=== PATIENT | female | born 1955 | race Caucasian/White ===

== ENCOUNTER 2023-04-23 19:08 | Emergency (ER) | payer OTHER, MEDICAID ==
[~2023-04-23] VITALS: Ht 162.6 cm; Wt 54.4 kg
[2023-04-23 19:13] VITALS: BP 133/77; PULSE 78; RESP 16; TEMP 97.8; O2SAT 98
--- NOTE | 2023-04-23 19:13 | NUR ---
PT PLACED IN BED 08 BY [facility]
[2023-04-23] MEDS ORDERED: DICYCLOMINE HCL LIQUID 20 MG, ALUMINUM HYD/MAG/SIMETHICONE 30 ML, LIDOCAINE VISCOUS 2% ... PO ONE ×3 (19:25)
[2023-04-23] MEDS ORDERED: FAMOTIDINE 20 MG/2 ML VIAL IVP ONE (19:25)
[2023-04-23] MEDS ORDERED: NACL 0.9% 1,000 ML IV ONE (19:25)
--- NOTE | 2023-04-23 19:31 | NUR ---
Note guadalupe in EDM - 04/23/23 at 1955 by [facility] 67 yo f leslee from home with c/c of 03/28 burn-like epigastric pain x over 1 month. denies n/v/d. reports being seen at [facility] had mri and ct done, states she does not know what is wrong with her. hx:hyperlidemia allergy:pcn
--- NOTE | 2023-04-23 19:31 | NUR ---
67 yo f leslee from home with c/c of 6/10 burn-like epigastric pain x over 1 month. denies n/v/d. reports being seen at [facility] had mri and ct done, states she does not know what is wrong with her. call light within reach, pt instructed on how to use call light, pt returned demonstration. all needs met at this time. bed locked in lowest position , side rails x2 for saftey. hx:hyperlidemia allergy:pcn
[2023-04-23] MEDS ORDERED: ALUMINUM HYD/MAG/SIMETHICONE 30 ML UDC ONE ×2 (19:38→19:41)
[2023-04-23] MEDS ORDERED: DICYCLOMINE HCL LIQUID 10 MG/5 ML UDC ONE (19:39)
--- NOTE | 2023-04-23 19:49 | NUR ---
rad at bedside
[2023-04-23 20:00] LABS: BASOPHILS % (AUTO) 0.6 % (0.0-2.0); EOSINOPHILS % (AUTO) 0.4 % (0.0-4.0); HEMATOCRIT 36.6 % (36-48); HEMOGLOBIN 12.4 g/dL (12.0-16.0); LYMPHOCYTES # (AUTO) 1.2 K/uL (2.5-16.5); LYMPHOCYTES % (AUTO) 22.1 % (20.5-51.1); MEAN CORPUSCULAR HEMOGLOBIN 32 pg (27-31); MEAN CORPUSCULAR HGB CONC 34 g/dL (33-37); MEAN CORPUSCULAR VOLUME 95.2 fL (80-94); MONOCYTES # (AUTO) 0.4 K/uL (0.8-1.0); MONOCYTES % (AUTO) 7.8 % (1.7-9.3); NEUTROPHILS # (AUTO) 3.9 K/uL (1.8-7.7); NEUTROPHILS % (AUTO) 69.1 % (42.2-75.2); PLATELET COUNT (AUTO) 118 K/uL (140-450); RED BLOOD CELL COUNT(AUTO) 3.84 MIL/uL (4.20-5.40); WHITE BLOOD COUNT (AUTO) 5.6 K/uL (4.8-10.8)
[2023-04-23 20:18] LABS: ALBUMIN 3.6 g/dL (3.4-5.0); ANION GAP 12.4 (8-16); ASPARTATE AMINOTRANSFERASE 22 U/L (15-37); CARBON DIOXIDE 26.6 mmol/L (21-32); CHLORIDE 103 mmol/L (98-107); CREATININE 0.8 mg/dL (0.6-1.3); GFR ARICAN-AMERICAN 93 mL/min (>90); GLUCOSE 94 mg/dL (74-106); LIPASE 139 U/L (73-393); SODIUM SERUM 138 mmol/L (136-145); TOTAL BILIRUBIN 0.5 mg/dL (0.0-1.0); UREA NITROGEN, BLOOD 11 mg/dL (7-18)
--- NOTE | 2023-04-23 20:19 | NUR ---
radiology at bedside
--- NOTE | 2023-04-23 20:30 | NUR ---
pt stated that she ws relieved from pain
--- NOTE | 2023-04-23 21:00 | NUR ---
lauar moore [phone] Addendum: 04/23/23 at 2104 by [email or web address] [id number]
--- NOTE | 2023-04-23 21:17 | NUR ---
pt to ct
--- NOTE | 2023-04-23 21:17 | NUR ---
pt brought to radiology by radiator core tester
[2023-04-24] MEDS ORDERED: OMEP40EC23 PO (00:03)
[2023-04-24] MEDS ORDERED: SUCR1TAB35 PO (00:03)
--- NOTE | 2023-04-24 00:40 | NUR ---
Patient discharged with v/s stable. Written and verbal after care instructions given and explained. Patient alert, oriented and verbalized understanding of instructions. Ambulatory with steady gait. All questions addressed prior to discharge. ID band removed. Patient advised to follow up with PMD. Rx given to pt. Patient educated on indication of medication including possible reaction and side effects. Opportunity to ask questions provided and answered.
[2023-04-24 00:52] VITALS: BP 124/80; PULSE 84; RESP 16; TEMP 98.5; O2SAT 99
== END 2023-04-24 00:40 | disposition home or self-care (01) ==
LOC: MED 19:08
DX: R10.13 Epigastric pain (principal); Z79.899 Other long term (current) drug therapy; Z88.0 Allergy status to penicillin
CPT/HCPCS: 36415; 71045; 74177; 80053; 83690; 84484; 85025; 93005; 96361; 96374; 99285; J3490; J7030; Q9967

== ENCOUNTER 2023-05-23 16:27 | Emergency (ER) | payer OTHER, MEDICAID ==
[~2023-05-23] VITALS: Ht 157.5 cm; Wt 53.5 kg
[~2023-05-23 16:27] MED LIST: OMEP40EC23 PO; SUCR1TAB35 PO
[2023-05-23 16:45] VITALS: BP 139/56; PULSE 87; RESP 18; TEMP 97.4; O2SAT 94
[2023-05-23 17:43] LABS: BASOPHILS % (AUTO) 0.6 % (0.0-2.0); EOSINOPHILS % (AUTO) 0.3 % (0.0-4.0); HEMATOCRIT 38.1 % (36-48); HEMOGLOBIN 12.9 g/dL (12.0-16.0); LYMPHOCYTES % (AUTO) 19.1 % (20.5-51.1); MEAN CORPUSCULAR HEMOGLOBIN 32 pg (27-31); MEAN CORPUSCULAR HGB CONC 34 g/dL (33-37); MEAN CORPUSCULAR VOLUME 95.3 fL (80-94); MONOCYTES # (AUTO) 0.3 K/uL (0.8-1.0); MONOCYTES % (AUTO) 5.9 % (1.7-9.3); NEUTROPHILS % (AUTO) 74.1 % (42.2-75.2); PLATELET COUNT (AUTO) 115 K/uL (140-450); RED BLOOD CELL COUNT(AUTO) 3.99 MIL/uL (4.20-5.40); RED CELL DISTRIBUTION WIDTH 13.2 % (11.6-13.7); WHITE BLOOD COUNT (AUTO) 5.4 K/uL (4.8-10.8)
[2023-05-23 18:09] LABS: ALBUMIN 3.4 g/dL (3.4-5.0); ANION GAP 11.2 (8-16); CARBON DIOXIDE 28.6 mmol/L (21-32); CREATININE 0.8 mg/dL (0.6-1.3); POTASSIUM 3.8 mmol/L (3.5-5.1); TOTAL BILIRUBIN 0.6 mg/dL (0.0-1.0)
[2023-05-23] MEDS ORDERED: FAMOTIDINE 20 MG/2 ML VIAL IVP ONE (19:15)
[2023-05-23] MEDS ORDERED: DICYCLOMINE HCL LIQUID 20 MG, ALUMINUM HYD/MAG/SIMETHICONE 30 ML, LIDOCAINE VISCOUS 2% ... PO ONE ×3 (19:15)
--- NOTE | 2023-05-23 19:26 | NUR ---
PT TAKEN TO BED 9
[2023-05-23 20:00] VITALS: TEMP 97.4
--- NOTE | 2023-05-23 20:00 | NUR ---
PATIENT IS A 67/F WHO CAME IN DUE TO 1 DAY HISTORY OF BURNIGN EPIGASTRIC PAIN, 5/10, LOCALIZED ASSOCIATED WITH DECREASED APPETITE. NO FEVER/CHILLS, NAUSEA/VOMITING/DIARRHEA NOTED. PMHX: GERD ALLERGIES: PENICILLINS
[2023-05-23] MEDS ORDERED: DICYCLOMINE HCL LIQUID 10 MG/5 ML UDC ONE (20:05)
--- NOTE | 2023-05-23 20:15 | NUR ---
X-RAY AT BEDSIDE.
--- NOTE | 2023-05-23 20:44 | NUR ---
PATIENT TAKEN TO CT.
[2023-05-23 21:44] LABS: APPEARANCE,URINE CLEAR (CLEAR); BILIRUBIN,URINE NEGATIVE (NEGATIVE); BLOOD, URINE NEGATIVE (NEGATIVE); COLOR,URINE YELLOW (YELLOW); LEUKOCYTE ESTERASE ,URINE NEGATIVE (NEGATIVE); NITRITE, URINE NEGATIVE (NEGATIVE); PH,URINE 6.5 (5.0-9.0); UGLUCOSE NEGATIVE (NEGATIVE)
--- NOTE | 2023-05-23 22:23 | NUR ---
PATIENT AWAKE AND COMFORTABLE IN BED. NO COMPLAINTS OF PAIN OR SIGNS OF ACUTE DISTRESS AT THIS TIME. SIDE RAILS UP AND CALL LIGHT WITHIN REACH.
--- NOTE | 2023-05-23 23:35 | NUR ---
Dr. Rollins examining patient.
[2023-05-23] MEDS ORDERED: FAMO-90 PO (23:37)
[2023-05-23] MEDS ORDERED: MAG355OR2 PO (23:38)
[2023-05-24 00:05] VITALS: BP 115/71; PULSE 63; RESP 16; O2SAT 99
--- NOTE | 2023-05-24 00:23 | NUR ---
Patient discharged with v/s stable. Written and verbal after care instructions given and explained. Patient alert, oriented and verbalized understanding of instructions. Ambulatory with steady gait. All questions addressed prior to discharge. ID band removed. Patient advised to follow up with PMD. Rx of Maalox given. Patient educated on indication of medication including possible reaction and side effects. Opportunity to ask questions provided and answered.
== END 2023-05-24 00:23 | disposition home or self-care (01) ==
LOC: MED 16:27
DX: R10.13 Epigastric pain (principal); Z79.899 Other long term (current) drug therapy
CPT/HCPCS: 36415; 71045; 74177; 80053; 81003; 83690; 84484; 85025; 93005; 96374; 99285; J3490; Q9967

== ENCOUNTER 2023-06-11 12:19 | Emergency (ER) | payer OTHER, MEDICAID ==
[~2023-06-11] VITALS: Ht 162.6 cm; Wt 51.3 kg
[~2023-06-11 12:19] MED LIST changes: +FAMO-90 PO; +MAG355OR2 PO
[2023-06-11 12:29] VITALS: BP 120/64; PULSE 74; RESP 16; TEMP 97.1; O2SAT 97
[2023-06-11 12:40] VITALS: BP 120/64; PULSE 74; RESP 16; TEMP 97.1; O2SAT 97
[2023-06-11 13:01] LABS: BASOPHILS % (AUTO) 0.6 % (0.0-2.0); EOSINOPHILS % (AUTO) 0.1 % (0.0-4.0); HEMATOCRIT 39.2 % (36-48); HEMOGLOBIN 13.6 g/dL (12.0-16.0); LYMPHOCYTES # (AUTO) 0.6 K/uL (2.5-16.5); LYMPHOCYTES % (AUTO) 14.4 % (20.5-51.1); MEAN CORPUSCULAR HEMOGLOBIN 33 pg (27-31); MEAN CORPUSCULAR HGB CONC 35 g/dL (33-37); MEAN CORPUSCULAR VOLUME 94.6 fL (80-94); MONOCYTES # (AUTO) 0.3 K/uL (0.8-1.0); MONOCYTES % (AUTO) 5.8 % (1.7-9.3); NEUTROPHILS # (AUTO) 3.5 K/uL (1.8-7.7); NEUTROPHILS % (AUTO) 79.1 % (42.2-75.2); PLATELET COUNT (AUTO) 117 K/uL (140-450); RED BLOOD CELL COUNT(AUTO) 4.15 MIL/uL (4.20-5.40); WHITE BLOOD COUNT (AUTO) 4.4 K/uL (4.8-10.8)
[2023-06-11 13:30] LABS: ALBUMIN 3.7 g/dL (3.4-5.0); ANION GAP 13.4 (8-16); CALCIUM 8.9 mg/dL (8.5-10.1); CARBON DIOXIDE 26.9 mmol/L (21-32); CREATININE 0.9 mg/dL (0.6-1.3); POTASSIUM 4.3 mmol/L (3.5-5.1); TOTAL BILIRUBIN 0.9 mg/dL (0.0-1.0); TOTAL PROTEIN, SERUM 6.7 g/dL (6.4-8.2)
[2023-06-11 13:46] LABS: APPEARANCE,URINE CLEAR (CLEAR); BILIRUBIN,URINE NEGATIVE (NEGATIVE); BLOOD, URINE NEGATIVE (NEGATIVE); COLOR,URINE YELLOW (YELLOW); LEUKOCYTE ESTERASE ,URINE 1+ (NEGATIVE); NITRITE, URINE NEGATIVE (NEGATIVE); PROTEIN,URINE NEGATIVE (NEGATIVE); UGLUCOSE NEGATIVE (NEGATIVE); UROBILINOGEN,URINE 0.2 EU/dL (0.2 - 1)
[2023-06-11 14:10] LABS: BACTERIA,URINE 0-2 /HPF (None Seen); RBC,URINE 0-5 /HPF (0-5); WBC,URINE 0-5 /HPF (0-5)
== END 2023-06-11 15:40 | disposition home or self-care (01) ==
LOC: MED 12:19
DX: K29.70 Gastritis, unspecified, without bleeding (principal); D72.819 Decreased white blood cell count, unspecified; D69.6 Thrombocytopenia, unspecified; K21.9 Gastro-esophageal reflux disease without esophagitis; Z88.0 Allergy status to penicillin; Z79.899 Other long term (current) drug therapy
CPT/HCPCS: 36415; 80053; 81001; 83690; 85025; 87086; 99283

== ENCOUNTER 2023-06-16 08:03 | Emergency (ER) | payer OTHER, MEDICAID ==
[~2023-06-16] VITALS: Ht 162.6 cm; Wt 74.8 kg
[2023-06-16 08:06] VITALS: BP 102/61; PULSE 75; RESP 17; TEMP 98.5; O2SAT 97
[2023-06-16 08:25] VITALS: O2SAT 98
[2023-06-16 08:29] VITALS: BP 102/61; PULSE 75; RESP 17; TEMP 98.5
[2023-06-16] MEDS ORDERED: ONDANSETRON 4 MG ODT PO ONE (08:40)
[2023-06-16] MEDS ORDERED: ALUMINUM HYD/MAG/SIMETHICONE 30 ML UDC PO ONE (08:40)
[2023-06-16] MEDS ORDERED: FAMOTIDINE 20 MG TAB PO ONE (08:40)
[2023-06-16] MEDS ORDERED: MAG-27 PO (09:48)
[2023-06-16] MEDS ORDERED: FAMO-92 PO (09:48)
[2023-06-16] MEDS ORDERED: ONDA-188 PO (09:48)
[2023-06-16 10:13] VITALS: O2SAT 97
== END 2023-06-16 10:13 | disposition home or self-care (01) ==
LOC: MED 08:03
DX: K29.70 Gastritis, unspecified, without bleeding (principal); K21.9 Gastro-esophageal reflux disease without esophagitis; Z79.899 Other long term (current) drug therapy
CPT/HCPCS: 99284; Q0162

== ENCOUNTER 2023-06-18 09:46 | Emergency (ER) | payer OTHER, MEDICAID ==
[~2023-06-18] VITALS: Ht 162.6 cm; Wt 74.8 kg
[~2023-06-18 09:46] MED LIST changes: +FAMO-92 PO; +MAG-27 PO; +ONDA-188 PO
[2023-06-18 09:52] VITALS: BP 104/61; PULSE 82; RESP 18; TEMP 97.7; O2SAT 98
[2023-06-18] MEDS ORDERED: ALUMINUM HYD/MAG/SIMETHICONE 30 ML UDC PO ONE (10:00)
[2023-06-18 10:17] LABS: BASOPHILS % (AUTO) 0.6 % (0.0-2.0); EOSINOPHILS % (AUTO) 0.3 % (0.0-4.0); HEMATOCRIT 36.7 % (36-48); HEMOGLOBIN 12.6 g/dL (12.0-16.0); LYMPHOCYTES # (AUTO) 0.8 K/uL (2.5-16.5); LYMPHOCYTES % (AUTO) 17.8 % (20.5-51.1); MEAN CORPUSCULAR HEMOGLOBIN 33 pg (27-31); MEAN CORPUSCULAR HGB CONC 35 g/dL (33-37); MEAN CORPUSCULAR VOLUME 94.8 fL (80-94); MONOCYTES # (AUTO) 0.2 K/uL (0.8-1.0); MONOCYTES % (AUTO) 5.5 % (1.7-9.3); NEUTROPHILS # (AUTO) 3.2 K/uL (1.8-7.7); NEUTROPHILS % (AUTO) 75.8 % (42.2-75.2); PLATELET COUNT (AUTO) 118 K/uL (140-450); RED BLOOD CELL COUNT(AUTO) 3.87 MIL/uL (4.20-5.40); RED CELL DISTRIBUTION WIDTH 13.2 % (11.6-13.7); WHITE BLOOD COUNT (AUTO) 4.2 K/uL (4.8-10.8)
[2023-06-18] MEDS ORDERED: ONDANSETRON 4 MG ODT PO ONE (10:25)
[2023-06-18] MEDS ORDERED: ACETAMINOPHEN 325 MG TAB PO ONE (10:25)
[2023-06-18 10:51] LABS: ALANINE AMINOTRANSFERASE 29 U/L (12-78); ALBUMIN 3.3 g/dL (3.4-5.0); ALKALINE PHOSPHATASE 28 U/L (50-136); ANION GAP 9.1 (8-16); ASPARTATE AMINOTRANSFERASE 21 U/L (15-37); CALCIUM 8.3 mg/dL (8.5-10.1); CARBON DIOXIDE 26.9 mmol/L (21-32); CHLORIDE 105 mmol/L (98-107); CREATININE 0.7 mg/dL (0.6-1.3); GFR ARICAN-AMERICAN 108 mL/min (>90); GFR NON ARICAN-AMERICAN 89 mL/min (>90); GLUCOSE 102 mg/dL (74-106); LIPASE 162 U/L (73-393); SODIUM SERUM 137 mmol/L (136-145); TOTAL BILIRUBIN 0.6 mg/dL (0.0-1.0); UREA NITROGEN, BLOOD 14 mg/dL (7-18)
[2023-06-18] MEDS ORDERED: SUCR1TAB35 PO (11:32)
[2023-06-18 11:44] VITALS: BP 104/61; PULSE 82; RESP 18; TEMP 97.7; O2SAT 98
== END 2023-06-18 11:45 | disposition home or self-care (01) ==
LOC: MED 09:46
DX: R10.13 Epigastric pain (principal); R51.9 Headache, unspecified; K21.9 Gastro-esophageal reflux disease without esophagitis; Z88.0 Allergy status to penicillin; Z79.899 Other long term (current) drug therapy
CPT/HCPCS: 36415; 71045; 80053; 83690; 84484; 85025; 93005; 99285; Q0162

== ENCOUNTER 2023-06-20 12:49 | Emergency (ER) | payer OTHER, MEDICAID ==
[~2023-06-20] VITALS: Ht 165.1 cm; Wt 72.6 kg
[2023-06-20 12:54] VITALS: BP 117/74; PULSE 80; RESP 16; TEMP 98.4; O2SAT 97
[2023-06-20] MEDS ORDERED: ALUMINUM HYD/MAG/SIMETHICONE 30 ML UDC PO ONE (13:05)
[2023-06-20] MEDS ORDERED: KETOROLAC 30 MG/ML VIAL IM ONE (13:05)
[2023-06-20] MEDS ORDERED: ONDANSETRON 4 MG ODT PO ONE (13:05)
[2023-06-20 13:34] LABS: BASOPHILS % (AUTO) 0.4 % (0.0-2.0); EOSINOPHILS % (AUTO) 0.4 % (0.0-4.0); HEMATOCRIT 36.2 % (36-48); HEMOGLOBIN 12.4 g/dL (12.0-16.0); LYMPHOCYTES # (AUTO) 0.8 K/uL (2.5-16.5); LYMPHOCYTES % (AUTO) 14.8 % (20.5-51.1); MEAN CORPUSCULAR HEMOGLOBIN 33 pg (27-31); MEAN CORPUSCULAR HGB CONC 34 g/dL (33-37); MEAN CORPUSCULAR VOLUME 95.6 fL (80-94); MONOCYTES # (AUTO) 0.3 K/uL (0.8-1.0); MONOCYTES % (AUTO) 6.3 % (1.7-9.3); NEUTROPHILS % (AUTO) 78.1 % (42.2-75.2); PLATELET COUNT (AUTO) 123 K/uL (140-450); RED BLOOD CELL COUNT(AUTO) 3.79 MIL/uL (4.20-5.40); RED CELL DISTRIBUTION WIDTH 13.1 % (11.6-13.7); WHITE BLOOD COUNT (AUTO) 5.1 K/uL (4.8-10.8)
[2023-06-20 13:58] LABS: ALBUMIN 3.4 g/dL (3.4-5.0); ANION GAP 7.6 (8-16); CALCIUM 8.6 mg/dL (8.5-10.1); CARBON DIOXIDE 31.5 mmol/L (21-32); CREATININE 0.8 mg/dL (0.6-1.3); POTASSIUM 4.1 mmol/L (3.5-5.1); TOTAL BILIRUBIN 0.6 mg/dL (0.0-1.0); TOTAL PROTEIN, SERUM 6.1 g/dL (6.4-8.2)
[2023-06-20] MEDS ORDERED: OMEP40EC23 PO (15:12)
[2023-06-20] MEDS ORDERED: ONDA-188 PO (15:12)
[2023-06-20] MEDS ORDERED: MAG-27 PO (15:12)
[2023-06-20] MEDS ORDERED: FAMO-90 PO (15:12)
[2023-06-20 15:43] VITALS: BP 118/76; PULSE 78; RESP 18; TEMP 98.4; O2SAT 98
== END 2023-06-20 15:44 | disposition home or self-care (01) ==
LOC: MED 12:49
DX: K29.70 Gastritis, unspecified, without bleeding (principal); Z88.0 Allergy status to penicillin; Z79.899 Other long term (current) drug therapy
CPT/HCPCS: 36415; 80053; 83690; 84484; 85025; 93005; 96372; 99284; J1885; Q0162

== ENCOUNTER 2023-06-26 08:53 | Inpatient (IN) | payer OTHER, MEDICAID ==
[~2023-06-26] VITALS: Ht 162.6 cm; Wt 54.4 kg
[2023-06-26 09:05] VITALS: BP 119/65; PULSE 75; RESP 18; O2SAT 95
[2023-06-26 09:43] LABS: BASOPHILS % (AUTO) 0.7 % (0.0-2.0); EOSINOPHILS % (AUTO) 0.6 % (0.0-4.0); HEMATOCRIT 37.2 % (36-48); HEMOGLOBIN 12.8 g/dL (12.0-16.0); LYMPHOCYTES # (AUTO) 0.5 K/uL (2.5-16.5); LYMPHOCYTES % (AUTO) 12.6 % (20.5-51.1); MEAN CORPUSCULAR HEMOGLOBIN 33 pg (27-31); MEAN CORPUSCULAR HGB CONC 34 g/dL (33-37); MEAN CORPUSCULAR VOLUME 95.5 fL (80-94); MONOCYTES # (AUTO) 0.2 K/uL (0.8-1.0); MONOCYTES % (AUTO) 5.4 % (1.7-9.3); NEUTROPHILS # (AUTO) 3.5 K/uL (1.8-7.7); NEUTROPHILS % (AUTO) 80.7 % (42.2-75.2); PLATELET COUNT (AUTO) 121 K/uL (140-450); RED CELL DISTRIBUTION WIDTH 13.1 % (11.6-13.7); WHITE BLOOD COUNT (AUTO) 4.3 K/uL (4.8-10.8)
[2023-06-26] MEDS ORDERED: MORPHINE SULFATE 4 MG/ML SYR IVP ONE (10:00)
[2023-06-26] MEDS ORDERED: NACL 0.9% 1,000 ML IV ONE (10:00)
[2023-06-26] MEDS ORDERED: PANTOPRAZOLE 40 MG INJ VIAL IVP ONE (10:00)
[2023-06-26] MEDS ORDERED: ONDANSETRON 4 MG/2 ML VIAL IVP ONE (10:00)
[2023-06-26 10:03] LABS: ALANINE AMINOTRANSFERASE 20 U/L (12-78); ALBUMIN 3.2 g/dL (3.4-5.0); ALKALINE PHOSPHATASE 31 U/L (50-136); ANION GAP 9.3 (8-16); ASPARTATE AMINOTRANSFERASE 16 U/L (15-37); CALCIUM 8.4 mg/dL (8.5-10.1); CARBON DIOXIDE 28.6 mmol/L (21-32); CHLORIDE 105 mmol/L (98-107); CREATININE 0.8 mg/dL (0.6-1.3); GFR ARICAN-AMERICAN 93 mL/min (>90); GFR NON ARICAN-AMERICAN 77 mL/min (>90); GLUCOSE 86 mg/dL (74-106); LIPASE 116 U/L (73-393); POTASSIUM 3.9 mmol/L (3.5-5.1); SODIUM SERUM 139 mmol/L (136-145); TOTAL BILIRUBIN 0.7 mg/dL (0.0-1.0); UREA NITROGEN, BLOOD 18 mg/dL (7-18)
[2023-06-26 10:36] LABS: APPEARANCE,URINE CLEAR (CLEAR); BILIRUBIN,URINE NEGATIVE (NEGATIVE); BLOOD, URINE NEGATIVE (NEGATIVE); COLOR,URINE YELLOW (YELLOW); LEUKOCYTE ESTERASE ,URINE NEGATIVE (NEGATIVE); NITRITE, URINE NEGATIVE (NEGATIVE); PH,URINE 6.5 (5.0-9.0); PROTEIN,URINE NEGATIVE (NEGATIVE); UGLUCOSE NEGATIVE (NEGATIVE); UROBILINOGEN,URINE 0.2 EU/dL (0.2 - 1)
[2023-06-26] MEDS ORDERED: SODIUM PHOSPHATE 118 ML ENEM RC ONE (11:15)
[2023-06-26] MEDS ORDERED: LORazepam 2 MG/ML VIAL IVP PRN (12:50)
[2023-06-26] MEDS ORDERED: POTASSIUM CHLORIDE 10 MEQ TABER PO PRN (12:50)
[2023-06-26] MEDS ORDERED: ONDANSETRON 4 MG/2 ML VIAL IVP PRN (12:50)
[2023-06-26] MEDS ORDERED: ACETAMINOPHEN 325 MG TAB PO PRN (12:50)
[2023-06-26] MEDS ORDERED: bisacodyL 10 MG SUPP RC PRN ×2 (12:50→14:50)
[2023-06-26] MEDS ORDERED: DOCUSATE SODIUM 100 MG GELCAP PO PRN (12:50)
[2023-06-26] MEDS: NACL 0.9% 1,000 ML IV SCH ×2 (14:13→22:01)
[2023-06-26] MEDS: metroNIDAZOLE 500 MG/NS PREMIX 100 ML IV SCH ×2 (14:14→21:41)
[2023-06-26] MEDS: LEVOFLOXACIN 500 MG/D5W PREMIX 100 ML IV SCH (15:53)
[2023-06-26] MEDS: DOCUSATE SODIUM 250 MG GELCAP PO SCH (21:40)
[2023-06-26] MEDS: ZOLPIDEM 10 MG TAB PO PRN (21:51)
[2023-06-26 23:22] VITALS: O2SAT 95
[2023-06-27] VITALS: BP 128/76; PULSE 85; RESP 18; TEMP 97.6; O2SAT 97
[2023-06-27 04:00] VITALS: BP 124/72; PULSE 78; RESP 18; TEMP 97.5; O2SAT 97
[2023-06-27] MEDS: metroNIDAZOLE 500 MG/NS PREMIX 100 ML IV SCH ×3 (05:27→21:47)
[2023-06-27 06:36] LABS: BASOPHILS % (AUTO) 0.5 % (0.0-2.0); EOSINOPHILS # (AUTO) 0.1 K/uL (0-0.4); EOSINOPHILS % (AUTO) 1.5 % (0.0-4.0); HEMATOCRIT 36.3 % (36-48); HEMOGLOBIN 12.6 g/dL (12.0-16.0); LYMPHOCYTES # (AUTO) 0.9 K/uL (2.5-16.5); LYMPHOCYTES % (AUTO) 14.3 % (20.5-51.1); MEAN CORPUSCULAR HEMOGLOBIN 33 pg (27-31); MEAN CORPUSCULAR HGB CONC 35 g/dL (33-37); MEAN CORPUSCULAR VOLUME 94.8 fL (80-94); MONOCYTES # (AUTO) 0.4 K/uL (0.8-1.0); MONOCYTES % (AUTO) 6.8 % (1.7-9.3); NEUTROPHILS # (AUTO) 4.9 K/uL (1.8-7.7); NEUTROPHILS % (AUTO) 76.9 % (42.2-75.2); PLATELET COUNT (AUTO) 118 K/uL (140-450); RED BLOOD CELL COUNT(AUTO) 3.83 MIL/uL (4.20-5.40); WHITE BLOOD COUNT (AUTO) 6.3 K/uL (4.8-10.8)
[2023-06-27 06:52] LABS: ANION GAP 11.9 (8-16); CALCIUM 8.4 mg/dL (8.5-10.1); CARBON DIOXIDE 25.7 mmol/L (21-32); CREATININE 0.7 mg/dL (0.6-1.3); POTASSIUM 3.6 mmol/L (3.5-5.1)
[2023-06-27] MEDS: NACL 0.9% 1,000 ML IV SCH ×2 (08:19→16:26)
[2023-06-27] MEDS: DOCUSATE SODIUM 250 MG GELCAP PO SCH ×2 (08:19→21:47)
[2023-06-27 08:54] VITALS: BP 126/80; PULSE 87; RESP 18; TEMP 98; O2SAT 99
[2023-06-27 09:19] VITALS: PULSE 87; RESP 18; O2SAT 99
[2023-06-27] MEDS: LEVOFLOXACIN 500 MG/D5W PREMIX 100 ML IV SCH (15:15)
[2023-06-27] MEDS: MORPHINE SULFATE 2 MG/ML SYR IVP PRN (15:21)
[2023-06-27 15:46] VITALS: BP 113/79; PULSE 78; RESP 18; TEMP 97.8; O2SAT 98
[2023-06-27 20:00] VITALS: BP 104/66; PULSE 76; RESP 18; TEMP 98.6; O2SAT 97
[2023-06-27] MEDS: ZOLPIDEM 10 MG TAB PO PRN (21:49)
[2023-06-28 04:00] VITALS: BP 115/70; PULSE 78; RESP 18; TEMP 97.8; O2SAT 99
[2023-06-28] MEDS: NACL 0.9% 1,000 ML IV SCH ×2 (04:50→12:06)
[2023-06-28] MEDS: metroNIDAZOLE 500 MG/NS PREMIX 100 ML IV SCH ×2 (05:40→12:06)
[2023-06-28 07:16] LABS: BASOPHILS % (AUTO) 0.8 % (0.0-2.0); EOSINOPHILS % (AUTO) 0.9 % (0.0-4.0); HEMOGLOBIN 12.6 g/dL (12.0-16.0); LYMPHOCYTES # (AUTO) 0.6 K/uL (2.5-16.5); LYMPHOCYTES % (AUTO) 15.3 % (20.5-51.1); MEAN CORPUSCULAR HEMOGLOBIN 33 pg (27-31); MEAN CORPUSCULAR HGB CONC 35 g/dL (33-37); MONOCYTES # (AUTO) 0.3 K/uL (0.8-1.0); MONOCYTES % (AUTO) 7.1 % (1.7-9.3); NEUTROPHILS % (AUTO) 75.9 % (42.2-75.2); PLATELET COUNT (AUTO) 117 K/uL (140-450); RED BLOOD CELL COUNT(AUTO) 3.83 MIL/uL (4.20-5.40); RED CELL DISTRIBUTION WIDTH 13.3 % (11.6-13.7)
[2023-06-28 07:24] LABS: CALCIUM 8.5 mg/dL (8.5-10.1); CARBON DIOXIDE 28.6 mmol/L (21-32); CREATININE 0.8 mg/dL (0.6-1.3); POTASSIUM 3.6 mmol/L (3.5-5.1)
[2023-06-28] MEDS ORDERED: MAG SULF 2000 MG/WATER PREMIX 50 ML IV PRN (08:00)
[2023-06-28] MEDS: DOCUSATE SODIUM 250 MG GELCAP PO SCH ×2 (08:15→20:55)
[2023-06-28 08:51] VITALS: PULSE 82; RESP 18; O2SAT 100
[2023-06-28 09:05] VITALS: BP 119/75; PULSE 82; RESP 18; TEMP 98.2; O2SAT 100
[2023-06-28] MEDS: LEVOFLOXACIN 500 MG/D5W PREMIX 100 ML IV SCH (14:36)
[2023-06-28] MEDS: MORPHINE SULFATE 2 MG/ML SYR IVP PRN (15:33)
[2023-06-28 16:13] VITALS: BP 119/79; PULSE 85; RESP 18; TEMP 98.5; O2SAT 97
[2023-06-28] MEDS ORDERED: POTASSIUM CHLORIDE 10 MEQ TABER PO PRN (18:30)
[2023-06-28] MEDS ORDERED: ACETAMINOPHEN 325 MG TAB PO PRN (18:30)
[2023-06-28 20:00] VITALS: PULSE 75; RESP 17; O2SAT 98
[2023-06-28] MEDS: MAG SULF 2000 MG/WATER PREMIX 50 ML IV PRN ×2 (21:17→21:27)
[2023-06-29] VITALS: BP 107/69; PULSE 75; RESP 18; TEMP 97.4; O2SAT 97
[2023-06-29] MEDS: NACL 0.9% 1,000 ML IV SCH ×3 (01:27→20:50)
[2023-06-29 06:46] LABS: BASOPHILS % (AUTO) 0.9 % (0.0-2.0); EOSINOPHILS % (AUTO) 1.1 % (0.0-4.0); HEMATOCRIT 35.3 % (36-48); HEMOGLOBIN 12.2 g/dL (12.0-16.0); LYMPHOCYTES # (AUTO) 0.6 K/uL (2.5-16.5); LYMPHOCYTES % (AUTO) 14.7 % (20.5-51.1); MEAN CORPUSCULAR HEMOGLOBIN 33 pg (27-31); MEAN CORPUSCULAR HGB CONC 35 g/dL (33-37); MEAN CORPUSCULAR VOLUME 94.9 fL (80-94); MONOCYTES # (AUTO) 0.3 K/uL (0.8-1.0); MONOCYTES % (AUTO) 7.1 % (1.7-9.3); NEUTROPHILS % (AUTO) 76.2 % (42.2-75.2); PLATELET COUNT (AUTO) 113 K/uL (140-450); RED BLOOD CELL COUNT(AUTO) 3.72 MIL/uL (4.20-5.40); RED CELL DISTRIBUTION WIDTH 13.2 % (11.6-13.7); WHITE BLOOD COUNT (AUTO) 3.9 K/uL (4.8-10.8)
[2023-06-29 06:54] LABS: ANION GAP 10.1 (8-16); CALCIUM 8.1 mg/dL (8.5-10.1); CARBON DIOXIDE 28.4 mmol/L (21-32); CREATININE 0.8 mg/dL (0.6-1.3); POTASSIUM 3.5 mmol/L (3.5-5.1)
[2023-06-29] MEDS: DOCUSATE SODIUM 250 MG GELCAP PO SCH ×2 (08:06→20:33)
[2023-06-29 09:25] VITALS: PULSE 89; RESP 16; O2SAT 98
[2023-06-29 09:26] VITALS: BP 127/78; PULSE 89; RESP 18; TEMP 98.1; O2SAT 98
[2023-06-29] MEDS ORDERED: SODIUM PHOSPHATE 118 ML ENEM RC SCH (12:30)
[2023-06-29 16:44] VITALS: BP 120/77; PULSE 76; RESP 16; TEMP 97.7; O2SAT 98
[2023-06-29] MEDS: PANTOPRAZOLE 40 MG INJ VIAL IVP SCH (17:22)
[2023-06-29] MEDS: POLYETHYLENE GLYCOL 17 GM/PKT PO SCH (17:30)
[2023-06-29 20:00] VITALS: PULSE 76; RESP 17; O2SAT 98
[2023-06-29] MEDS: SUCRALFATE 1 GM TAB PO SCH (20:33)
[2023-06-29] MEDS: ZOLPIDEM 10 MG TAB PO PRN (22:46)
[2023-06-30] MEDS: NACL 0.9% 1,000 ML IV SCH ×2 (02:05→06:50)
[2023-06-30 06:30] LABS: ANION GAP 10.5 (8-16); CALCIUM 8.5 mg/dL (8.5-10.1); CARBON DIOXIDE 29.2 mmol/L (21-32); CREATININE 0.8 mg/dL (0.6-1.3); POTASSIUM 3.7 mmol/L (3.5-5.1)
[2023-06-30 06:39] LABS: BASOPHILS % (AUTO) 0.7 % (0.0-2.0); EOSINOPHILS # (AUTO) 0.1 K/uL (0-0.4); EOSINOPHILS % (AUTO) 1.2 % (0.0-4.0); HEMATOCRIT 39.7 % (36-48); HEMOGLOBIN 13.6 g/dL (12.0-16.0); LYMPHOCYTES # (AUTO) 1.1 K/uL (2.5-16.5); LYMPHOCYTES % (AUTO) 23.8 % (20.5-51.1); MEAN CORPUSCULAR HEMOGLOBIN 33 pg (27-31); MEAN CORPUSCULAR HGB CONC 34 g/dL (33-37); MEAN CORPUSCULAR VOLUME 95.5 fL (80-94); MONOCYTES # (AUTO) 0.3 K/uL (0.8-1.0); MONOCYTES % (AUTO) 5.5 % (1.7-9.3); NEUTROPHILS # (AUTO) 3.3 K/uL (1.8-7.7); NEUTROPHILS % (AUTO) 68.8 % (42.2-75.2); PLATELET COUNT (AUTO) 129 K/uL (140-450); RED BLOOD CELL COUNT(AUTO) 4.16 MIL/uL (4.20-5.40); RED CELL DISTRIBUTION WIDTH 13.2 % (11.6-13.7); WHITE BLOOD COUNT (AUTO) 4.8 K/uL (4.8-10.8)
[2023-06-30 08:00] VITALS: BP 126/78; PULSE 109; RESP 16; TEMP 97.2; O2SAT 98; O2SAT 99
[2023-06-30] MEDS: DOCUSATE SODIUM 250 MG GELCAP PO SCH (09:18)
[2023-06-30] MEDS: SUCRALFATE 1 GM TAB PO SCH (09:18)
[2023-06-30] MEDS: POLYETHYLENE GLYCOL 17 GM/PKT PO SCH (09:18)
[2023-06-30] MEDS: PANTOPRAZOLE 40 MG INJ VIAL IVP SCH (09:27)
[2023-06-30] MEDS ORDERED: MIRABULK PO (11:04)
== END 2023-06-30 13:00 | disposition home or self-care (01) | DRG 392 ==
LOC: MED 08:53 → MTU 13:14
PROVIDERS: ADMIT General Practice; ATTEND General Practice
DX: K52.89 Other specified noninfective gastroenteritis and colitis (principal); K59.00 Constipation, unspecified; D69.6 Thrombocytopenia, unspecified; E86.0 Dehydration; E83.42 Hypomagnesemia; K29.70 Gastritis, unspecified, without bleeding; Z82.49 Family history of ischemic heart disease and other diseases of the circulatory system; Z88.0 Allergy status to penicillin; Z79.899 Other long term (current) drug therapy
CPT/HCPCS: 36415; 80048; 80053; 81003; 83036; 83690; 83735; 84484; 85025; 87081; 93005; 96361; 96374; 96375; 99285; C9113; J1956; J2060; J2270; J2405; J3475; J3490; Q9967

== ENCOUNTER 2023-09-23 11:38 | Emergency (ER) | payer OTHER, MEDICAID ==
[~2023-09-23] VITALS: Ht 157.5 cm; Wt 59.0 kg
[~2023-09-23 11:38] MED LIST changes: -FAMO-90 PO; -MAG-27 PO; +MIRABULK PO; -ONDA-188 PO
[2023-09-23 11:53] VITALS: BP 110/70; PULSE 96; RESP 18; TEMP 97; O2SAT 98
[2023-09-23] MEDS ORDERED: MECLIZINE 25 MG TAB PO ONE (13:10)
[2023-09-23] MEDS ORDERED: METOCLOPRAMIDE 10 MG TAB PO ONE (13:10)
[2023-09-23 14:03] LABS: BASOPHILS % (AUTO) 0.6 % (0.0-2.0); EOSINOPHILS % (AUTO) 0.5 % (0.0-4.0); HEMATOCRIT 38.2 % (36-48); HEMOGLOBIN 12.8 g/dL (12.0-16.0); LYMPHOCYTES # (AUTO) 1.4 K/uL (2.5-16.5); LYMPHOCYTES % (AUTO) 21.8 % (20.5-51.1); MEAN CORPUSCULAR HEMOGLOBIN 33 pg (27-31); MEAN CORPUSCULAR HGB CONC 34 g/dL (33-37); MEAN CORPUSCULAR VOLUME 97.2 fL (80-94); MONOCYTES # (AUTO) 0.3 K/uL (0.8-1.0); MONOCYTES % (AUTO) 5.1 % (1.7-9.3); NEUTROPHILS # (AUTO) 4.8 K/uL (1.8-7.7); PLATELET COUNT (AUTO) 135 K/uL (140-450); RED BLOOD CELL COUNT(AUTO) 3.93 MIL/uL (4.20-5.40); RED CELL DISTRIBUTION WIDTH 12.6 % (11.6-13.7); WHITE BLOOD COUNT (AUTO) 6.6 K/uL (4.8-10.8)
[2023-09-23 14:10] LABS: ANION GAP 7.4 (8-16); CALCIUM 8.6 mg/dL (8.5-10.1); CARBON DIOXIDE 30.6 mmol/L (21-32); CREATININE 0.7 mg/dL (0.6-1.3)
[2023-09-23 14:16] LABS: ALBUMIN 3.6 g/dL (3.4-5.0); BILIRUBIN,DIRECT 0.1 mg/dL (0.0-0.3); TOTAL BILIRUBIN 0.6 mg/dL (0.0-1.0); TOTAL PROTEIN, SERUM 6.7 g/dL (6.4-8.2)
[2023-09-23] MEDS ORDERED: MECLIZINE 25 MG TAB ONE (14:28)
[2023-09-23] MEDS ORDERED: METOCLOPRAMIDE 10 MG TAB ONE (14:28)
[2023-09-23] MEDS ORDERED: MECL-231 PO (15:42)
[2023-09-23] MEDS ORDERED: IBUP-2213 PO (15:42)
[2023-09-23 16:12] VITALS: BP 124/68; PULSE 74; RESP 20; TEMP 98.4; O2SAT 98
== END 2023-09-23 16:12 | disposition home or self-care (01) ==
LOC: MED 11:38
DX: S09.90XA Unspecified injury of head, initial encounter (principal); R42 Dizziness and giddiness; J45.909 Unspecified asthma, uncomplicated; E11.9 Type 2 diabetes mellitus without complications; I10 Essential (primary) hypertension; Z86.69 Personal history of other diseases of the nervous system and sense organs; Z79.899 Other long term (current) drug therapy; Z79.1 Long term (current) use of non-steroidal anti-inflammatories (NSAID); Z88.0 Allergy status to penicillin; W01.198A Fall on same level from slipping, tripping and stumbling with subsequent striking against other object, initial encounter; Y92.59 Other trade areas as the place of occurrence of the external cause; Y93.89 Activity, other specified; Y99.8 Other external cause status
CPT/HCPCS: 36415; 70450; 80048; 80076; 83690; 85025; 93005; 99284; J8597

== ENCOUNTER 2023-12-09 11:10 | Inpatient (IN) | payer OTHER, MEDICAID ==
[2023-12-09] VITALS (9 sets, daily range): BP systolic 95–124; BP diastolic 56–70; PULSE 67–80; RESP 18; TEMP 97.7–98.2; O2SAT 67–98
[~2023-12-09] VITALS: Ht 162.6 cm; Wt 45.4 kg
[~2023-12-09 11:10] MED LIST changes: +IBUP-2213 PO; +MECL-231 PO
[2023-12-09] MEDS: NACL 0.9% 1,000 ML IV ONE (12:25)
[2023-12-09 12:52] LABS: BASOPHILS % (AUTO) 0.5 % (0.0-2.0); EOSINOPHILS % (AUTO) 0.7 % (0.0-4.0); HEMATOCRIT 42.9 % (36-48); HEMOGLOBIN 14.7 g/dL (12.0-16.0); LYMPHOCYTES # (AUTO) 0.9 K/uL (2.5-16.5); LYMPHOCYTES % (AUTO) 20.4 % (20.5-51.1); MEAN CORPUSCULAR HEMOGLOBIN 33 pg (27-31); MEAN CORPUSCULAR HGB CONC 34 g/dL (33-37); MEAN CORPUSCULAR VOLUME 95.5 fL (80-94); MONOCYTES # (AUTO) 0.2 K/uL (0.8-1.0); MONOCYTES % (AUTO) 4.5 % (1.7-9.3); NEUTROPHILS # (AUTO) 3.2 K/uL (1.8-7.7); NEUTROPHILS % (AUTO) 73.9 % (42.2-75.2); PLATELET COUNT (AUTO) 124 K/uL (140-450); RED BLOOD CELL COUNT(AUTO) 4.49 MIL/uL (4.20-5.40); RED CELL DISTRIBUTION WIDTH 12.8 % (11.6-13.7); WHITE BLOOD COUNT (AUTO) 4.3 K/uL (4.8-10.8)
[2023-12-09 13:07] LABS: ALANINE AMINOTRANSFERASE 45 U/L (12-78); ALBUMIN 3.8 g/dL (3.4-5.0); ALKALINE PHOSPHATASE 57 U/L (50-136); ASPARTATE AMINOTRANSFERASE 26 U/L (15-37); BILIRUBIN,DIRECT 0.1 mg/dL (0.0-0.3); LIPASE 53 U/L (16-77); TOTAL BILIRUBIN 0.5 mg/dL (0.0-1.0); TOTAL PROTEIN, SERUM 8.4 g/dL (6.4-8.2)
[2023-12-09] MEDS: KETOROLAC 30 MG/ML VIAL IVP ONE (13:18)
[2023-12-09 13:41] LABS: APPEARANCE,URINE CLEAR (CLEAR); BILIRUBIN,URINE NEGATIVE (NEGATIVE); BLOOD, URINE NEGATIVE (NEGATIVE); COLOR,URINE YELLOW (YELLOW); LEUKOCYTE ESTERASE ,URINE NEGATIVE (NEGATIVE); NITRITE, URINE NEGATIVE (NEGATIVE); PROTEIN,URINE NEGATIVE (NEGATIVE); UGLUCOSE NEGATIVE (NEGATIVE); UROBILINOGEN,URINE 0.2 EU/dL (0.2 - 1)
[2023-12-09] MEDS ORDERED: ACETAMINOPHEN EXTRA STRENGTH 500 MG TAB PO PRN (14:05)
[2023-12-09 14:25] LABS: ANION GAP 13.8 (8-16); CALCIUM 9.1 mg/dL (8.5-10.1); CARBON DIOXIDE 28.2 mmol/L (21-32); CREATININE 0.7 mg/dL (0.6-1.3)
[2023-12-09] MEDS: ASPIRIN 325 MG TAB PO ONE (14:27)
[2023-12-09] MEDS: NACL 0.9% 1,000 ML IV SCH (14:28)
[2023-12-09] MEDS: ATORVASTATIN 20 MG TAB PO SCH (20:04)
[2023-12-09] MEDS: ZOLPIDEM 5 MG TAB PO PRN (21:07)
[2023-12-10] VITALS (7 sets, daily range): BP systolic 106–118; BP diastolic 18–74; PULSE 70–83; RESP 16–18; TEMP 97.6–98.2; O2SAT 97–100
[2023-12-10 06:53] LABS: BASOPHILS % (AUTO) 0.8 % (0.0-2.0); EOSINOPHILS # (AUTO) 0.1 K/uL (0-0.4); EOSINOPHILS % (AUTO) 1.7 % (0.0-4.0); HEMOGLOBIN 12.7 g/dL (12.0-16.0); LYMPHOCYTES # (AUTO) 1.2 K/uL (2.5-16.5); LYMPHOCYTES % (AUTO) 28.7 % (20.5-51.1); MEAN CORPUSCULAR HEMOGLOBIN 33 pg (27-31); MEAN CORPUSCULAR HGB CONC 34 g/dL (33-37); MEAN CORPUSCULAR VOLUME 95.2 fL (80-94); MONOCYTES # (AUTO) 0.3 K/uL (0.8-1.0); MONOCYTES % (AUTO) 7.9 % (1.7-9.3); NEUTROPHILS # (AUTO) 2.6 K/uL (1.8-7.7); NEUTROPHILS % (AUTO) 60.9 % (42.2-75.2); PLATELET COUNT (AUTO) 112 K/uL (140-450); RED BLOOD CELL COUNT(AUTO) 3.88 MIL/uL (4.20-5.40); RED CELL DISTRIBUTION WIDTH 12.4 % (11.6-13.7); WHITE BLOOD COUNT (AUTO) 4.2 K/uL (4.8-10.8)
[2023-12-10 07:40] LABS: CALCIUM 8.4 mg/dL (8.5-10.1); CARBON DIOXIDE 27.1 mmol/L (21-32); CREATININE 0.7 mg/dL (0.6-1.3); POTASSIUM 4.1 mmol/L (3.5-5.1)
[2023-12-10] MEDS: ASPIRIN 81 MG TAB.CHEW PO SCH (10:50)
[2023-12-11 04:00] VITALS: BP 130/69; PULSE 76; RESP 18; TEMP 97.1; O2SAT 98
[2023-12-11] MEDS: ONDANSETRON 4 MG/2 ML VIAL IVP PRN (07:32)
[2023-12-11 08:00] VITALS: BP 121/71; PULSE 71; PULSE 74; RESP 18; TEMP 98.3; O2SAT 98
[2023-12-11] MEDS: CARBAMIDE PEROXIDE 6.5% OT 15 ML BTL OT SCH (11:52)
[2023-12-11 12:00] VITALS: BP 128/69; PULSE 75; RESP 18; TEMP 98.1; O2SAT 98
[2023-12-11 16:00] VITALS: BP 126/71; PULSE 81; RESP 18; TEMP 97.3; O2SAT 98
[2023-12-11 16:37] VITALS: BP 126/71; PULSE 81; RESP 18; TEMP 97.3
== END 2023-12-11 17:31 | disposition home or self-care (01) | DRG 206 ==
LOC: MED 11:10 → MTU 14:02
PROVIDERS: ADMIT Student in an Organized Health Care Education/Training Program; ATTEND Student in an Organized Health Care Education/Training Program
DX: M94.0 Chondrocostal junction syndrome [Tietze] (principal); R51.9 Headache, unspecified; E83.51 Hypocalcemia; Z88.0 Allergy status to penicillin; Z79.899 Other long term (current) drug therapy
CPT/HCPCS: 36415; 70450; 71045; 80048; 80076; 81003; 83690; 84484; 85025; 87081; 93005; 96361; 96374; 97110; 97116; 97163-GP; 97530; 99285; J1885; J2405

== ENCOUNTER 2024-03-21 12:54 | Emergency (ER) | payer OTHER, MEDICAID ==
[~2024-03-21] VITALS: Ht 167.6 cm; Wt 59.0 kg
[~2024-03-21 12:54] MED LIST changes: +SUCR-3 PO; -SUCR1TAB35 PO
[2024-03-21 13:04] VITALS: BP 104/69; PULSE 80; RESP 16; TEMP 99; O2SAT 96
[2024-03-21 14:06] LABS: BASOPHILS % (AUTO) 0.6 % (0.0-2.0); EOSINOPHILS % (AUTO) 0.2 % (0.0-4.0); HEMOGLOBIN 13.7 g/dL (12.0-16.0); LYMPHOCYTES # (AUTO) 0.8 K/uL (2.5-16.5); LYMPHOCYTES % (AUTO) 20.4 % (20.5-51.1); MEAN CORPUSCULAR HEMOGLOBIN 33 pg (27-31); MEAN CORPUSCULAR HGB CONC 34 g/dL (33-37); MEAN CORPUSCULAR VOLUME 96.2 fL (80-94); MONOCYTES # (AUTO) 0.3 K/uL (0.8-1.0); NEUTROPHILS # (AUTO) 2.9 K/uL (1.8-7.7); NEUTROPHILS % (AUTO) 71.8 % (42.2-75.2); PLATELET COUNT (AUTO) 119 K/uL (140-450); RED BLOOD CELL COUNT(AUTO) 4.16 MIL/uL (4.20-5.40)
[2024-03-21 14:19] LABS: ANION GAP 10.5 (8-16); CALCIUM 9.2 mg/dL (8.5-10.1); CARBON DIOXIDE 29.4 mmol/L (21-32); CREATININE 0.8 mg/dL (0.6-1.3); POTASSIUM 3.9 mmol/L (3.5-5.1)
[2024-03-21] MEDS ORDERED: LORazepam 1 MG TAB ONE (14:48)
[2024-03-21] MEDS: LORazepam 1 MG TAB PO ONE (14:53)
[2024-03-21 16:02] LABS: APPEARANCE,URINE CLEAR (CLEAR); BILIRUBIN,URINE NEGATIVE (NEGATIVE); BLOOD, URINE NEGATIVE (NEGATIVE); COLOR,URINE YELLOW (YELLOW); LEUKOCYTE ESTERASE ,URINE NEGATIVE (NEGATIVE); NITRITE, URINE NEGATIVE (NEGATIVE); PROTEIN,URINE NEGATIVE (NEGATIVE); UGLUCOSE NEGATIVE (NEGATIVE)
[2024-03-21] MEDS ORDERED: ATA25 PO (16:08)
[2024-03-21 16:36] VITALS: O2SAT 96
== END 2024-03-21 16:20 | disposition home or self-care (01) ==
LOC: MED 12:54
DX: F41.9 Anxiety disorder, unspecified (principal); D61.818 Other pancytopenia; E11.9 Type 2 diabetes mellitus without complications; I10 Essential (primary) hypertension; K21.9 Gastro-esophageal reflux disease without esophagitis; Z88.0 Allergy status to penicillin; Z79.4 Long term (current) use of insulin; Z79.899 Other long term (current) drug therapy
CPT/HCPCS: 36415; 80048; 81003; 85025; 99283